=== PATIENT | male | born 1980 | race Caucasian/White ===

== ENCOUNTER 2019-01-14 09:09 | Emergency (ER) | payer BC ==
[~2019-01-14 09:09] MED LIST: AUGMENTIN500 MG OR; AUGMENTIN875 MG OR; EPIPEN0.3 MG IM; LORTAB 5 OR; MEDDOSEPAK OR; NO HOME MEDS; VICODIN ES1 TAB OR
[2019-01-14 10:59] VITALS: BP 144/61
== END 2019-01-14 11:02 | disposition home or self-care (01) | DRG 605 ==
LOC: ED 09:09
PROC: 0HQLXZZ Repair Left Lower Leg Skin, External Approach (ICD-10-PCS; principal; 2019-01-14)
DX: S81.012A Laceration without foreign body, left knee, initial encounter (principal); W18.30XA Fall on same level, unspecified, initial encounter